=== PATIENT | male | born 1990 | race American Indian/Alaskan Native ===

== ENCOUNTER 2017-06-24 22:57 | Emergency (ER) | payer SELFPAY ==
[2017-06-25 00:12] VITALS: BP 139/89
[2017-06-25] MEDS ORDERED: BOOSTRIX IM ONE (01:50)
[2017-06-25] MEDS ORDERED: MOTRIN PO ONE (01:50)
--- NOTE | 2017-06-25 01:52 | Emergency Department Report ---
- General Chief Complaint: Wound/Laceration Stated Complaint: CUT LEFT INDEX FINGER Time Seen by Provider: 06/25/17 01:40 Source: patient Mode of arrival: Ambulatory Limitations: No Limitations - History of Present Illness Initial Comments: This is a 27-year-old male nontoxic, well nourished in appearance, no acute signs of distress presents to the ED complaining of a 1 cm laceration to the left index finger. Patient stated last night around 1999 patient was washing a glass cup that broke and caused a laceration to the left index finger. Patient denies any numbness, tingling, fever, chills, nausea, vomiting, chest pain or shortness of breath. Patient denies decreased range of motion. Patient stated last tetanus shot is unaware. Patient denies any allergies or past medical history. -: Gradual, days(s) (1) Extremity Location: Left: Hand (index finger) Place: home Patient Tetanus UTD: No Context: accidental Associated Symptoms: pain. denies: loss of feeling/numbness, suspect foreign body present, unable to move injured part, weakness followed by dizziness, nausea/vomiting, fever - Related Data Previous Rx's Medication Instructions Recorded Last Taken Type Cephalexin [Keflex] 500 mg PO Q8HR 5 Days 06/25/17 Unknown Rx Ibuprofen [Motrin 600 MG tab] 600 mg PO Q8H PRN #30 tablet 06/25/17 Unknown Rx Allergies Allergy/AdvReac Type Severity Reaction Status Date / Time No Known Allergies Allergy Verified 06/25/17 00:08 ED Review of Systems ROS: Stated complaint: CUT LEFT INDEX FINGER Other details as noted in HPI Constitutional: denies: chills, fever Eyes: denies: eye pain, eye discharge, vision change ENT: denies: ear pain, throat pain Respiratory: denies: cough, shortness of breath, wheezing Cardiovascular: denies: chest pain, palpitations Endocrine: no symptoms reported Gastrointestinal: denies: abdominal pain, nausea, diarrhea Genitourinary: denies: urgency, dysuria Musculoskeletal: denies: back pain, joint swelling, arthralgia Skin: denies: rash, lesions Neurological: denies: headache, weakness, paresthesias Psychiatric: denies: anxiety, depression Hematological/Lymphatic: denies: easy bleeding, easy bruising ED Past Medical Hx - Past Medical History Previous Medical History?: No - Surgical History Past Surgical History?: No - Social History Smoking Status: Never Smoker Substance Use Type: None - Medications Home Medications: Home Medications Medication Instructions Recorded Confirmed Last Taken Type Cephalexin [Keflex] 500 mg PO Q8HR 5 Days 06/25/17 Unknown Rx Ibuprofen [Motrin 600 MG tab] 600 mg PO Q8H PRN #30 tablet 06/25/17 Unknown Rx ED Physical Exam - General Limitations: No Limitations General appearance: alert, in no apparent distress - Head Head exam: Present: atraumatic, normocephalic, normal inspection - Eye Eye exam: Present: normal appearance, PERRL, EOMI. Absent: scleral icterus, conjunctival injection, nystagmus, periorbital swelling, periorbital tenderness Pupils: Present: normal accommodation - ENT ENT exam: Present: normal exam, normal orophraynx, mucous membranes moist, TM's normal bilaterally, normal external ear exam - Neck Neck exam: Present: normal inspection, full ROM. Absent: tenderness, meningismus, lymphadenopathy, thyromegaly - Respiratory Respiratory exam: Present: normal lung sounds bilaterally. Absent: respiratory distress, wheezes, rales, rhonchi, stridor, chest wall tenderness, accessory muscle use, decreased breath sounds, prolonged expiratory - Cardiovascular Cardiovascular Exam: Present: regular rate, normal rhythm, normal heart sounds. Absent: bradycardia, tachycardia, irregular rhythm, systolic murmur, diastolic murmur, rubs, gallop - GI/Abdominal GI/Abdominal exam: Present: soft, normal bowel sounds. Absent: distended, tenderness, guarding, rebound, rigid, diminished bowel sounds - Rectal Rectal exam: Present: deferred - Extremities Exam Extremities exam: Present: normal inspection, full ROM, tenderness, normal capillary refill. Absent: pedal edema, joint swelling, calf tenderness - Expanded Upper Extremity Exam Left General: Present: normal inspection, laceration Shoulder Exam: Present: normal inspection, full ROM Upper Arm exam: Present: normal inspection, full ROM Elbow exam: Present: normal inspection, full ROM Forearm Wrist exam: Present: normal inspection, full ROM Hand Wrist exam: Present: normal inspection, full ROM, tenderness, laceration ( 1 cm superficial to the left index. Bleeding under control. No swelling pus or drainage noted. Normal range of motion. Neurovascular intact.). Absent: swelling, abrasion, ecchymosis, deformity, crepidus, dislocation, erythema, amputation, nail avulsion, subungual hematoma Neuro motor exam: Present: wrist extension intact, thumb opposition intact, thumb IP flexion intact, thumb adduction intact, fingers 2-5 abduction intact Neurosensory exam: Present: 2-point discrimination, radial nerve intact, ulnar nerve intact, median nerve intact Vascular: Present: vascular compromise, normal capillary refill, radial pulse, brachial pulse, ulnar pulse - Back Exam Back exam: Present: normal inspection, full ROM. Absent: tenderness, CVA tenderness (R), CVA tenderness (L), muscle spasm, paraspinal tenderness, vertebral tenderness, rash noted - Neurological Exam Neurological exam: Present: alert, oriented X3, CN II-XII intact, normal gait, reflexes normal - Psychiatric Psychiatric exam: Present: normal affect, normal mood - Skin Skin exam: Present: warm, dry, intact, normal color. Absent: rash ED Course Vital Signs 06/25/17 00:08 Temperature 98.3 F Pulse Rate 75 Respiratory 20 Rate Blood Pressure 139/89 O2 Sat by Pulse 100 Oximetry - Reevaluation(s) Reevaluation #1: 06/25/17 01:52 Patient is speaking in full sentences but no signs of distress noted. - Laceration /Wound Repair Left Finger Wound Location: upper extremity (left index finger) Wound Length (cm): 1 Wound's Depth, Shape: superficial, linear Wound Explored: clean Irrigated w/ Saline (ccs): 40 Betadine Prep?: Yes Wound Repaired With: Dermabond Sterile Dressing Applied?: Yes Progress: Under sterile field, I used Betadine to clean the area. I then used 40 mL of normal saline to flush the area. I then applied Dermabond to close the superficial laceration. I then applied a sterile 4 x 4 with tape. Minimal bleeding noted but is under control. Patient tolerated procedure well with no signs of distress. Critical care attestation.: If time is entered above; I have spent that time in minutes in the direct care of this critically ill patient, excluding procedure time. ED Disposition Clinical Impression: Laceration Disposition: DC-01 TO HOME OR SELFCARE Is pt being admited?: No Does the pt Need Aspirin: No Condition: Stable Instructions: Skin Adhesive Care (ED), Laceration (ED), Cephalexin (By mouth), Ibuprofen (By mouth) Additional Instructions: Follow-up with a primary care doctor today to 3-5 days or if symptoms worsen continue return to emergency room as soon as possible. Keep area dry and clean for 7 days. Do not peel off the Dermabond. Prescriptions: Cephalexin [Keflex] 500 mg PO Q8HR 5 Days Ibuprofen [Motrin 600 MG tab] 600 mg PO Q8H PRN #30 tablet PRN Reason: Pain Referrals: PRIMARY CAREMD [Primary Care Provider] - 3-5 Days GARIMA POP MD [Staff Physician] - 3-5 Days [facility] [Outside] - 3-5 Days [facility] [Outside] - 3-5 Days Forms: Work/School Release Form(ED)
--- NOTE | 2017-06-25 03:03 | XRay Report ---
FINAL REPORT EXAM: XR HAND 3+V LT HISTORY: lac r/o foreign body/fracture OF THE LEFT HAND COMPARISON: None available. FINDINGS: Three views of the left hand obtained. No radiopaque foreign body. Bony structures are intact. Joint spaces are preserved. No acute fracture dislocation. Positive ulnar variance which could predispose the patient to ulnar abutment syndrome. IMPRESSION: No acute bony abnormality. No radiopaque foreign body.
== END 2017-06-25 03:30 | disposition home or self-care (01) ==
LOC: ED 22:57
DX: S61.211A Laceration without foreign body of left index finger without damage to nail, initial encounter (principal); W25.XXXA Contact with sharp glass, initial encounter; Y93.89 Activity, other specified; Y92.89 Other specified places as the place of occurrence of the external cause; Y99.8 Other external cause status
CPT/HCPCS: 90471; 90715; 99283